=== PATIENT | male | born 1955 | race Caucasian/White ===

== ENCOUNTER 2018-01-07 08:06 | Emergency (ER) | payer OTHER ==
[~2018-01-07] VITALS: Ht 165.1 cm; Wt 97.5 kg
[2018-01-07 08:13] VITALS: Ht 165.1 cm; Wt 97.5 kg
[2018-01-07 10:07] VITALS: BP 158/91
== END 2018-01-07 10:07 | disposition home or self-care (01) ==
LOC: ED 08:06
DX: M79.641 Pain in right hand (principal); M25.531 Pain in right wrist; F17.210 Nicotine dependence, cigarettes, uncomplicated; I10 Essential (primary) hypertension; E11.649 Type 2 diabetes mellitus with hypoglycemia without coma
CPT/HCPCS: 82962